=== PATIENT | female | born 1995 | race Caucasian/White ===

== ENCOUNTER 2022-07-18 15:56 | Outpatient (CLI) | payer OTHER, SELFPAY ==
[2022-07-18 17:17] LABS: Beta HCG Quantitative < 2.39 mIU/ML
== END 2022-07-18 15:57 | disposition home or self-care (01) ==
LOC: ANHLAB 16:00
PROVIDERS: Visit Provider Student in an Organized Health Care Education/Training Program
DX: N92.6 Irregular menstruation, unspecified (principal)
CPT/HCPCS: 36415; 84702